=== PATIENT | female | born 1980 | race Caucasian/White ===

== ENCOUNTER 2017-01-15 13:28 | Outpatient (CLI) | payer OTHER ==
[~2017-01-15] VITALS: Ht 177.8 cm; Wt 81.4 kg
[2017-01-15 13:50] VITALS: BP 139/79; PULSE 74; TEMP 98.6
[2017-01-15] MEDS ORDERED: PRENATAL (13:59)
[2017-01-15] MEDS ORDERED: VITAMIN D32000 I1 PO (14:00)
[2017-01-15] MEDS ORDERED: FIBER GUMMIES PO (14:01)
== END 2017-01-15 14:40 | disposition home or self-care (01) ==
LOC: LDRO 13:28 → LDR 13:40 → LDRO 14:40
DX: Z03.71 Encounter for suspected problem with amniotic cavity and membrane ruled out (principal)
CPT/HCPCS: OP

== ENCOUNTER 2017-05-16 19:25 | Inpatient (IN) | payer OTHER ==
[2017-05-16] VITALS (14 sets, daily range): BP systolic 111–137; BP diastolic 58–92; PULSE 73–144; TEMP 97.9–98.6
[~2017-05-16] VITALS: Ht 177.8 cm; Wt 95.0 kg
[~2017-05-16 19:25] MED LIST: FIBER GUMMIES PO; PRENATAL; VITAMIN D32000 I1 PO
[2017-05-16] MEDS ORDERED: CALCIUM WITH D31 CTB (19:43)
[2017-05-16 22:04] LABS: BASO % 0.3 % (0.0-2.0); EOS % 0.1 % (0-4.0); GRAN # 13.7 (1.4-6.5); GRAN % 87.5 % (42.2-75.2); HEMATOCRIT 35.1 % (37.0-47.0); LYMPH # 1.1 (1.2-3.4); LYMPH % 6.8 % (20.0-51.0); MEAN CELL VOLUME 95 fl (80.0-100.0); MEAN CORPUSCULAR HEMOGLOBIN 33 pg (27.0-31.0); MEAN CORPUSCULAR HGB CONC 34 g/dl (33.0-37.0); MEAN PLATELET VOLUME 11.2 fl (7.4-10.4); MONO # 0.7 (0.1-0.6); MONO % 4.7 % (1.7-9.3); PLATELET COUNT 188 K/mm3 (130-400); RED BLOOD COUNT 3.68 M/mm3 (4.10-5.30); REDCELL DISTRIBUTION WIDTH-CV 13.2 % (11.5-14.5); WHITE BLOOD COUNT 15.6 K/mm3 (4.8-10.8)
[2017-05-17] VITALS (10 sets, daily range): BP systolic 101–128; BP diastolic 69–83; PULSE 76–104; TEMP 97.8–99.3
[2017-05-18 08:45] VITALS: BP 110/66; PULSE 66; TEMP 98.4
== END 2017-05-18 15:30 | disposition home or self-care (01) | DRG 775 ==
LOC: LDRO → LDR 20:00 → OB 05-17 02:30
PROVIDERS: Obstetrics & Gynecology
PROC: 10E0XZZ Delivery of Products of Conception, External Approach (ICD-10-PCS; principal; 2017-05-16)
PROC: 0KQM0ZZ Repair Perineum Muscle, Open Approach (ICD-10-PCS; 2017-05-16)
DX: O70.1 Second degree perineal laceration during delivery (principal); Z3A.39 39 weeks gestation of pregnancy; Z37.0 Single live birth
CPT/HCPCS: J2590; J7120